=== PATIENT | female | born 2000 | race Asian ===

== ENCOUNTER 2023-12-22 15:22 | Emergency (ER) | payer MEDICAID ==
[~2023-12-22] VITALS: Ht 162.6 cm; Wt 71.0 kg
[2023-12-22 15:26] VITALS: BP 120/58; PULSE 80; RESP 16; O2SAT 97
[2023-12-22 17:19] VITALS: TEMP 97.9
== END 2023-12-22 17:21 | disposition home or self-care (01) ==
LOC: ER 15:23
DX: S93.492A Sprain of other ligament of left ankle, initial encounter (principal); X50.1XXA Overexertion from prolonged static or awkward postures, initial encounter; Y93.89 Activity, other specified; Y92.89 Other specified places as the place of occurrence of the external cause; Y99.8 Other external cause status
CPT/HCPCS: 73610; 99283